=== PATIENT | female | born 1965 | race American Indian/Alaskan Native ===

== ENCOUNTER 2016-04-22 18:44 | Emergency (ER) | payer OTHER ==
[2016-04-22 19:44] VITALS: BP 145/90
[2016-04-22 20:23] LABS: Basophils % (Auto) 0.3 % (0.0-1.8); Eosinophils % (Auto) 3.1 % (0.0-4.3); Hematocrit 35.9 % (30.3-42.9); Mean Corpuscular HGB Conc 34 % (30-34); Mean Corpuscular Hemoglobin 29 pg (28-32); Mean Corpuscular Volume 88 fl (79-97); Platelet Count 285 K/mm3 (140-440); Red Blood Count 4.11 M/mm3 (3.65-5.03); Red Cell Distribution Width 13.1 % (13.2-15.2); White Blood Count 9.8 K/mm3 (4.5-11.0)
[2016-04-22 20:48] LABS: Bilirubin,Urine NEG (Negative); Blood,Urine NEG (Negative); Ketones,Urine NEG (Negative); Leukocyte Esterase,Urine NEG (Negative); Mucus,Urine FEW /HPF; Nitrite,Urine NEG (Negative); Protein,Urine <15 mg/dL mg/dL (Negative); Urobilinogen,Urine < 2.0 mg/dL (<2.0)
[2016-04-22 20:52] LABS: Alanine Aminotransferase 15 units/L (7-56); Albumin 3.9 g/dL (3.9-5); Albumin/Globulin Ratio 1.1 %; Alkaline Phosphatase 60 units/L (35-129); Anion Gap 16 mmol/L; Bilirubin,Total 0.2 mg/dL (0.1-1.2); Blood Urea Nitrogen 11 mg/dL (7-17); Calcium 9.1 mg/dL (8.4-10.2); Carbon Dioxide 26 mmol/L (22-30); Chloride 100.2 mmol/L (98-107); Glucose 107 mg/dL (65-100); Lipase 17 units/L (13-60); Potassium 3.8 mmol/L (3.6-5.0); Sodium 138 mmol/L (137-145); Total Protein 7.4 g/dL (6.3-8.2)
== END 2016-04-23 01:13 | disposition left against medical advice (07) ==
LOC: ED 18:44
DX: R10.9 Unspecified abdominal pain (principal); M54.9 Dorsalgia, unspecified; R10.2 Pelvic and perineal pain
CPT/HCPCS: 36415; 80053; 81001; 83690; 85025

== ENCOUNTER 2016-05-21 13:11 | Emergency (ER) | payer OTHER | END 2016-05-21 13:12 | disposition left against medical advice (07) | LOC: ED 13:11 | DX: M54.9 Dorsalgia, unspecified (principal); Z53.21 Procedure and treatment not carried out due to patient leaving prior to being seen by health care provider ==

== ENCOUNTER 2016-07-21 17:14 | Emergency (ER) | payer OTHER ==
[2016-07-21 17:54] VITALS: BP 149/101
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
[2016-07-21] MEDS ORDERED: MOTRIN PO ONE (19:30)
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
== END 2016-07-21 21:03 | disposition home or self-care (01) ==
LOC: ED 17:14
DX: S46.911A Strain of unspecified muscle, fascia and tendon at shoulder and upper arm level, right arm, initial encounter (principal); V49.49XA Driver injured in collision with other motor vehicles in traffic accident, initial encounter; Y93.89 Activity, other specified; Y99.9 Unspecified external cause status; Y92.488 Other paved roadways as the place of occurrence of the external cause

== ENCOUNTER 2016-10-16 11:39 | Emergency (ER) | payer OTHER ==
[2016-10-16] MEDS ORDERED: NORCO 5/325 PO ONE (15:51)
[2016-10-16] MEDS ORDERED: ZOFRAN ODT PO ONE (15:51)
--- NOTE | 2016-10-16 16:38 | XRay Report ---
FINAL REPORT PROCEDURE: XR CHEST ROUTINE 2V TECHNIQUE: Two views of the chest are obtained HISTORY: right sided chest pain COMPARISON: No prior studies are available for comparison. FINDINGS: The heart is normal in size. There is no focal infiltrate, pneumothorax or pleural effusion. Arthritic changes are seen in the thoracic spine. IMPRESSION: No acute abnormalities are seen.
[2016-10-16 16:40] LABS: Anion Gap 20 mmol/L; BUN/Creatinine Ratio 32.85; Blood Urea Nitrogen 23 mg/dL (7-17); Calcium 9.6 mg/dL (8.4-10.2); Carbon Dioxide 25 mmol/L (22-30); Chloride 101.4 mmol/L (98-107); Glucose 136 mg/dL (65-100); Potassium 4.1 mmol/L (3.6-5.0); Sodium 142 mmol/L (137-145)
[2016-10-16 16:44] LABS: Alanine Aminotransferase 41 units/L (7-56); Albumin/Globulin Ratio 1.1 %; Alkaline Phosphatase 56 units/L (35-129); Basophils % (Auto) 0.1 % (0.0-1.8); Creatine Kinase 51 units/L (30-135); Hematocrit 41.4 % (30.3-42.9); Hemoglobin 13.7 gm/dl (10.1-14.3); Lipase 59 units/L (13-60); Mean Corpuscular HGB Conc 33 % (30-34); Mean Corpuscular Hemoglobin 30 pg (28-32); Mean Corpuscular Volume 90 fl (79-97); Platelet Count 381 K/mm3 (140-440); Red Cell Distribution Width 14.1 % (13.2-15.2); Total Protein 7.5 g/dL (6.3-8.2); White Blood Count 18.6 K/mm3 (4.5-11.0)
--- NOTE | 2016-10-16 16:52 | Emergency Department Report ---
<JACQUELINELEONIEKATALINA OLVERA Dariusz - Last Filed: 10/16/16 21:20> ED Chest Pain HPI - General Chief Complaint: Back Pain/Injury Stated Complaint: BACK PAIN Time Seen by Provider: 10/16/16 15:18 Source: RN notes reviewed - History of Present Illness re: denies: nausea, vomting - Related Data Previous Rx's Medication Instructions Recorded Last Taken Type Acetaminophen/Codeine [Tylenol #3] 1 tab PO Q6H PRN #12 tab 10/16/16 Unknown Rx Ibuprofen [Motrin] 600 mg PO Q8H PRN #15 tablet 10/16/16 Unknown Rx Sulfamethoxazole/Trimethoprim 1 each PO BID #14 tablet 10/16/16 Unknown Rx [Bactrim DS TAB] methOCARBAMOL [Robaxin TAB] 500 mg PO Q6H PRN #15 tablet 10/16/16 Unknown Rx Allergies Allergy/AdvReac Type Severity Reaction Status Date / Time No Known Allergies Allergy Unverified 04/20/14 17:28 Heart Score - HEART Score EKG: Normal (Sinus Bradycardia) Age: < 45 Risk factors: No known risk factors Troponin: < normal limit - Critical Actions Critical Actions: 0-3 pts:0.9-1.7%risk of adverse cardiac event.Candidate for discharge ED Review of Systems ROS: Stated complaint: BACK PAIN Other details as noted in HPI Constitutional: denies: chills, fever Cardiovascular: chest pain (R upper back pain radiates around to chest ) Genitourinary: dysuria (intermittent 2-3 days. PT states "I feel like I am getting a UTI"), other (denies odor and itching ). denies: discharge Musculoskeletal: as per HPI, back pain (worse with movement) ED Past Medical Hx - Medications Home Medications: Home Medications Medication Instructions Recorded Confirmed Last Taken Type Acetaminophen/Codeine [Tylenol #3] 1 tab PO Q6H PRN #12 tab 10/16/16 Unknown Rx Ibuprofen [Motrin] 600 mg PO Q8H PRN #15 tablet 10/16/16 Unknown Rx Sulfamethoxazole/Trimethoprim 1 each PO BID #14 tablet 10/16/16 Unknown Rx [Bactrim DS TAB] methOCARBAMOL [Robaxin TAB] 500 mg PO Q6H PRN #15 tablet 10/16/16 Unknown Rx ED Physical Exam - Back Exam Back exam: Present: full ROM, tenderness, muscle spasm, paraspinal tenderness ( R t- spine ). Absent: CVA tenderness (R), CVA tenderness (L), rash noted - Neurological Exam Neurological exam: Present: normal gait ED Course Vital Signs 10/16/16 10/16/16 12:27 21:56 Temperature 98.4 F Pulse Rate 72 65 Respiratory 18 18 Rate Blood Pressure 134/97 Blood Pressure 152/96 [Left] O2 Sat by Pulse 100 100 Oximetry - Reevaluation(s) Reevaluation #1: 10/16/16 21:26 PT resting comfortably in bed. PT aware of lab findings and imaging results. PT states she is feeling better sp po [place]. However, she is still having T- spine paraspinal tenderness and muscle spams. PT states her PCP gave her Flexeril for this but it is not helping her symptoms and it only makes her sleepy. PT aware of plan of care. Reviewed strict return precautions with pt, she has no questions at this time. - Pulse Oximetry Interpretation Digit-Finger Initial Pulse Oximetry Readin Actions Taken: none ED Medical Decision Making - Lab Data Result diagrams: 10/16/16 16:11 10/16/16 16:11 Labs 10/16/16 10/16/16 10/16/16 16:11 16:11 16:11 WBC 18.6 H RBC 4.60 Hgb 13.7 Hct 41.4 MCV 90 MCH 30 MCHC 33 RDW 14.1 Plt Count 381 Lymph % (Auto) 9.3 L [place] % (Auto) 6.6 Eos % (Auto) 0.0 Baso % (Auto) 0.1 Lymph # 1.7 [place] # 1.2 H Eos # 0.0 Baso # 0.0 Seg Neutrophils % 84.0 H Seg Neutrophils # 15.6 H D-Dimer 374.67 H Sodium 142 Potassium 4.1 Chloride 101.4 Carbon Dioxide 25 Anion Gap 20 BUN 23 H Creatinine 0.7 Estimated GFR > 60 BUN/Creatinine Ratio 32.85 Glucose 136 H Calcium 9.6 Total Bilirubin Direct Bilirubin Indirect Bilirubin AST ALT Alkaline Phosphatase Total Creatine Kinase Troponin T < 0.010 NT-Pro-B Natriuret Pep Total Protein Albumin Albumin/Globulin Ratio Lipase Urine Color Urine Turbidity Urine pH Ur Specific [place] Urine Protein Urine Glucose (UA) Urine Ketones Urine Blood Urine Nitrite Urine Bilirubin Urine Urobilinogen Ur Leukocyte Esterase Urine WBC (Auto) Urine RBC (Auto) U Epithel Cells (Auto) Urine Mucus 10/16/16 10/16/16 10/16/16 16:11 19:41 20:30 WBC RBC Hgb Hct MCV MCH MCHC RDW Plt Count Lymph % (Auto) [place] % (Auto) Eos % (Auto) Baso % (Auto) Lymph # [place] # Eos # Baso # Seg Neutrophils % Seg Neutrophils # D-Dimer Sodium Potassium Chloride Carbon Dioxide Anion Gap BUN Creatinine Estimated GFR BUN/Creatinine Ratio Glucose Calcium Total Bilirubin 0.40 Direct Bilirubin < 0.2 Indirect Bilirubin 0.2 AST 26 ALT 41 Alkaline Phosphatase 56 Total Creatine Kinase 51 Troponin T < 0.010 NT-Pro-B Natriuret Pep 101.5 Total Protein 7.5 Albumin 4.0 Albumin/Globulin Ratio 1.1 Lipase 59 Urine Color Straw Urine Turbidity Clear Urine pH 5.0 Ur Specific [place] > 1.059 H Urine Protein <15 mg/dl Urine Glucose (UA) Neg Urine Ketones Neg Urine Blood Neg Urine Nitrite Neg Urine Bilirubin Neg Urine Urobilinogen < 2.0 Ur Leukocyte Esterase Sm Urine WBC (Auto) 10.0 H Urine RBC (Auto) 3.0 U Epithel Cells (Auto) 9.0 Urine Mucus Few leukocytosis likely from recently steroid usage or mild UTI - EKG Data -: EKG Interpreted by Me (and ED MD ) EKG shows normal: sinus rhythm Rate: bradycardia (56 BPM) - Radiology Data Radiology results: report reviewed CT chest - NO PE, may be mild CHF or fluid overload - Differential Diagnosis strain, bronchitis, pe, pna, uti Critical Care Time: No Critical care attestation.: If time is entered above; I have spent that time in minutes in the direct care of this critically ill patient, excluding procedure time. ED Disposition Clinical Impression: Back pain Qualifiers: Back pain location: thoracic back pain Chronicity: acute Back pain laterality: right Qualified Code(s): M54.6 - Pain in thoracic spine Leukocytosis Qualifiers: Leukocytosis type: unspecified Qualified Code(s): D72.829 - Elevated white blood cell count, unspecified UTI (urinary tract infection) Qualifiers: Urinary tract infection type: acute cystitis Hematuria presence: without hematuria Qualified Code(s): N30.00 - Acute cystitis without hematuria Disposition: DC-01 TO HOME OR SELFCARE Is pt being admited?: No Does the pt Need Aspirin: No Condition: Stable Instructions: Urinary Tract Infection in Women (ED), Muscle Spasm (ED), Back Pain (ED) Additional Instructions: no driving or alcohol after taking Tylenol #3 or Robaxin Stop the Flexeril No heavy lifting/ strenuous activity Stop the Augmentin Follow up with your PCP in 3-5 days return to the ED if you develop fevers, vomiting, shortness of breath or concerns Prescriptions: Acetaminophen/Codeine [Tylenol #3] 1 tab PO Q6H PRN #12 tab PRN Reason: Pain , Severe (7-10) Ibuprofen [Motrin] 600 mg PO Q8H PRN #15 tablet PRN Reason: Pain methOCARBAMOL [Robaxin TAB] 500 mg PO Q6H PRN #15 tablet PRN Reason: Muscle Spasm Sulfamethoxazole/Trimethoprim [Bactrim DS TAB] 1 each PO BID #14 tablet Referrals: MAURA HARRINGTON MD [Primary Care Provider] - 3-5 Days Forms: Work/School Release Form(ED) Time of Disposition: 21:30 <TRUMAN DEVINE - Last Filed: 10/19/16 23:33> ED Chest Pain HPI - General Source: patient Mode of arrival: Ambulatory Limitations: No Limitations - History of Present Illness Initial Comments: 51-year-old female past medical history none presents with complaint of 3 weeks of worsening right upper back/right upper chest wall pain. States she was treated for bronchitis by her primary care doctor with Augmentin prednisone Flexeril and Motrin with minimal relief of her symptoms. Patient is awake alert and oriented 3 not in acute distress but does state she feels uncomfortable. Patient is a nonsmoker. Denies any fevers or chills. Complaint: chest pain Onset/Timin -: week(s) Onset: during rest Pain Location: right chest Pain Radiation: back Severity: moderate Severity scale (0 -10): 6 Quality: sharp Consistency: intermittent Improves With: nothing Worsens With: nothing Other Symptoms: cough Treatments Prior to Arrival: none Aspirin use within the Past 7 Days: (0) No Heart Score - HEART Score History: Slightly suspicious ED Past Medical Hx - Past Medical History Additional medical history: Sinus problems, vaginal herpes, Bronchitis 10/11/16 - Surgical History Additional Surgical History: x2 - Social History Smoking Status: Never Smoker Substance Use Type: Prescribed ED Physical Exam - General Limitations: No Limitations General appearance: alert, in no apparent distress - Head Head exam: Present: atraumatic, normocephalic - Eye Eye exam: Present: normal appearance, PERRL, EOMI - ENT ENT exam: Present: mucous membranes moist - Neck Neck exam: Present: normal inspection, full ROM - Respiratory Respiratory exam: Present: normal lung sounds bilaterally. Absent: respiratory distress - Cardiovascular Cardiovascular Exam: Present: regular rate, normal rhythm. Absent: systolic murmur, diastolic murmur, rubs, gallop - GI/Abdominal GI/Abdominal exam: Present: soft, normal bowel sounds - Extremities Exam Extremities exam: Present: normal inspection - Back Exam Back exam: Present: normal inspection - Neurological Exam Neurological exam: Present: alert, oriented X3 - Psychiatric Psychiatric exam: Present: normal affect, normal mood - Skin Skin exam: Present: warm, dry, intact, normal color. Absent: rash ED Medical Decision Making - Lab Data Result diagrams: 10/16/16 16:11 10/16/16 16:11 - Medical Decision Making A/P: Right sided chest wall pain, rule out PE 1-pending chest CT result 2- UA 3-pt signed out to ALISON Ferraro ED Disposition Is pt being admited?: No Does the pt Need Aspirin: No
[2016-10-16 17:17] LABS: Bilirubin,Direct < 0.2 mg/dL (0-0.2); Bilirubin,Indirect 0.2 mg/dL
[2016-10-16] MEDS ORDERED: NACL ONE (18:03)
--- NOTE | 2016-10-16 19:22 | Cat Scan Report ---
FINAL REPORT PROCEDURE: CT ANGIO CHEST TECHNIQUE: Computerized tomographic angiography of the chest was performed after the IV injection of iodinated nonionic contrast including image processing. The image data was postprocessed using 2-dimensional multiplanar reformatted (MPR) and 3-dimensional (MIP and/or volume rendered) techniques. HISTORY: Right-sided chest pain COMPARISON: Chest x-ray from the same day FINDINGS: Minimal linear atelectasis is seen in the lingula. No pneumothorax or pleural effusion is seen. Probable benign cyst is seen in the spleen measuring 1.2 cm in diameter. It has a peripheral calcification. No mediastinal lymphadenopathy is seen. May be mild CHF or fluid overload. The thoracic aorta is normal in size without evidence of dissection. No pulmonary embolus is seen. No rib fracture is seen. IMPRESSION: No pulmonary embolus is seen.
[2016-10-16 21:08] LABS: Bilirubin,Urine NEG (Negative); Blood,Urine NEG (Negative); Ketones,Urine NEG (Negative); Leukocyte Esterase,Urine SM (Negative); Mucus,Urine FEW /HPF; Nitrite,Urine NEG (Negative); Protein,Urine <15 mg/dL mg/dL (Negative); Urobilinogen,Urine < 2.0 mg/dL (<2.0)
[2016-10-16] MEDS ORDERED: BACTRIM DS PO ONE (21:37)
[2016-10-16 21:58] VITALS: BP 152/96
== END 2016-10-16 21:56 | disposition home or self-care (01) ==
LOC: ED 11:39
DX: N30.00 Acute cystitis without hematuria (principal); D72.829 Elevated white blood cell count, unspecified; M54.6 Pain in thoracic spine
CPT/HCPCS: 36415; 71020; 71275; 80048; 80074; 81001; 82550; 83690; 83880; 84484; 85025; 85379; 93005; 93010; 99284; Q9967; Q0162